=== PATIENT | female | born 1965 | race Caucasian/White ===

== ENCOUNTER → 2016-10-08 | Outpatient (CLI) | payer BC ==
--- NOTE | 2016-10-09 10:58 | MM ---
Reason for exam: screening (asymptomatic). Last mammogram was performed 2 years and 2 months ago. History: Family history of breast cancer in mother. Physical Findings: A clinical breast exam by your physician is recommended on an annual basis and results should be correlated with mammographic findings. MG Screening Mammo w CAD Bilateral CC and MLO view(s) were taken. Prior study comparison: August 19, 2014, left breast MG work up mamm w CAD LT. August 13, 2014, bilateral MG screening mammo w CAD. The breast tissue is heterogeneously dense. This may lower the sensitivity of mammography. No significant changes when compared with prior studies. ASSESSMENT: Benign, BI-RAD 2 RECOMMENDATION: Routine screening mammogram of both breasts in 1 year.
== END | disposition home or self-care (01) ==
LOC: RADMAMWWP 16:41
PROVIDERS: ATTEND Obstetrics & Gynecology
DX: Z12.31 Encounter for screening mammogram for malignant neoplasm of breast (principal)

== ENCOUNTER → 2018-07-23 | Outpatient (CLI) | payer OTHER ==
--- NOTE | 2018-07-23 12:40 | XR ---
EXAMINATION TYPE: XR wrist complete RT, XR hand complete RT, XR forearm RT, XR elbow complete RT DATE OF EXAM: 07/23/2018 CLINICAL HISTORY: Pain after trip and fall injury. TECHNIQUE: Two views of the right forearm are obtained. 3 views of the right elbow, wrist, and hand a re obtained. Fourth scaphoid view right wrist is acquired. COMPARISON: None. FINDINGS: Images of right elbow show suspicious linear lucency consistent with acute nondisplaced fr acture through the radial head appreciated best on oblique image. There are no definitive abnormal fa t pad signs but oblique images strongly suspicious. Mild to moderate subcutaneous edema along ulnar a spect is noted. There is no additional acute fracture or dislocation seen in the right radius or ulna. The overlying soft tissue appears within normal limits. Right wrist shows no acute fracture or dislocation. Carpal joint spaces are maintained. Overlying sof t tissue is unremarkable. Right hand shows no acute fracture or dislocation. Mild degenerative change throughout the phalanges most prominent fifth PIP joint is seen. Overlying soft tissue is unremarkab le. IMPRESSION: There is linear lucency suspicious for acute nondisplaced intra-articular fracture throu gh the radial head. Correlate clinically for point tenderness at this level advised.
--- NOTE | 2018-07-23 12:42 | XR ---
EXAMINATION TYPE: XR knee complete LT DATE OF EXAM: 07/23/2018 CLINICAL HISTORY: Fall with left knee pain TECHNIQUE: Three views of the left knee are obtained. COMPARISON: None. FINDINGS: There is no acute fracture/dislocation evident in left knee. The tri-compartment joint sp aces demonstrate very small tricompartmental osteophytes. The overlying soft tissue appears unremark able. IMPRESSION: There is no acute fracture or dislocation in the left knee. Minimal tricompartmental art hrosis.
== END | disposition home or self-care (01) ==
LOC: RADXRMAIN 11:43
PROVIDERS: ATTEND Emergency Medicine
DX: S80.02XA Contusion of left knee, initial encounter (principal); S53.401A Unspecified sprain of right elbow, initial encounter; S63.501A Unspecified sprain of right wrist, initial encounter; M17.11 Unilateral primary osteoarthritis, right knee

== ENCOUNTER → 2018-11-10 | Outpatient (CLI) | payer BC, OTHER ==
--- NOTE | 2018-11-10 12:29 | XR ---
EXAMINATION TYPE: XR chest 2V DATE OF EXAM: 11/10/2018 COMPARISON: 04/29/2015 INDICATION: Cough pain radiating into shoulder TECHNIQUE: Frontal and lateral views of the chest are obtained. FINDINGS: The heart size is normal. The pulmonary vasculature is normal. The lungs are clear. IMPRESSION: 1. No acute pulmonary process.
== END | disposition home or self-care (01) ==
LOC: RADXRMAIN 12:14
PROVIDERS: ATTEND Family Medicine
DX: R07.81 Pleurodynia (principal)
CPT/HCPCS: 71046

== ENCOUNTER → 2018-12-12 | Outpatient (CLI) | payer BC, OTHER ==
--- NOTE | 2018-12-15 10:07 | MM ---
Reason for exam: screening (asymptomatic). Last mammogram was performed 2 years and 2 months ago. History: Patient is postmenopausal. Family history of breast cancer in mother. Physical Findings: A clinical breast exam by your physician is recommended on an annual basis and results should be correlated with mammographic findings. MG 3D Screening Mammo W/Cad Bilateral CC and MLO view(s) were taken. Prior study comparison: October 08, 2016, bilateral MG screening mammo w CAD. August 19, 2014, left breast MG work up mamm w CAD LT. The breast tissue is heterogeneously dense. This may lower the sensitivity of mammography. No significant changes when compared with prior studies. ASSESSMENT: Benign, BI-RAD 2 RECOMMENDATION: Routine screening mammogram of both breasts in 1 year.
== END | disposition home or self-care (01) ==
LOC: RADMAMWWP 13:47
PROVIDERS: ATTEND Family Medicine
DX: Z12.31 Encounter for screening mammogram for malignant neoplasm of breast (principal)
CPT/HCPCS: 77063; 77067

== ENCOUNTER → 2021-03-24 | Outpatient (CLI) | payer BC, OTHER ==
--- NOTE | 2021-03-28 08:45 | MM ---
Reason for exam: screening (asymptomatic). Last mammogram was performed 2 years and 3 months ago. History: Patient is postmenopausal. Family history of breast cancer in mother. Physical Findings: Nurse did not find any significant physical abnormalities on exam. MG 3D Screening Mammo W/Cad Bilateral CC and MLO view(s) were taken. Prior study comparison: December 12, 2018, bilateral MG 3d screening mammo w/cad. October 08, 2016, bilateral MG screening mammo w CAD. There are scattered fibroglandular densities. New 5mm isodense, oval, circumscribed nodule, probable cyst 2 o'clock left breast. Reassess at 6 months. ASSESSMENT: Probably benign, BI-RAD 3 RECOMMENDATION: Follow-up diagnostic mammogram of the right breast in 6 months.
== END | disposition home or self-care (01) ==
LOC: RADMAMWWP 14:48
PROVIDERS: ATTEND Family Medicine
DX: Z12.31 Encounter for screening mammogram for malignant neoplasm of breast (principal); Z78.0 Asymptomatic menopausal state; Z80.3 Family history of malignant neoplasm of breast
CPT/HCPCS: 77063; 77067

== ENCOUNTER → 2021-11-10 | Outpatient (CLI) | payer BC, OTHER ==
--- NOTE | 2021-11-10 14:33 | USB ---
Reason for Exam: Follow-up at short interval from prior study. Patient History: Menarche at age 12. First Full-Term at age 14. Hysterectomy at age 33. Postmenopausal. Mother had breast cancer. Risk Values: Dee 5 year model risk: 2.3%. NCI Lifetime model risk: 14.5%. Technique: Method: Targeted. Prior Study Comparison: 10/08/2016 Bilateral Screening Mammogram, LOCATED WITHIN [facility]. 12/12/2018 Bilateral Screening Mammogram, LOCATED [facility]IN [facility]. 03/24/2021 Bilateral Screening Mammogram, LOCATED WITHIN [facility]. Findings: The upper outer quadrant of the left breast, the axilla of the left breast and the retroareolar of the left breast were scanned. The left breast radiotracer ultrasound was obtained from 12:00 to 3:00 with additional evaluation of the retroareolar region and axillary region. Circumscribed anechoic mass within the left breast at 2:00 measuring 0.5 x 0.3 x 0.4 cm with no internal color flow. No posterior acoustic features identified. Favor to represent a cyst. Overall Assessment: Benign, BI-RAD 2 Management: Screening Mammogram of both breasts in 6 months. A clinical breast exam by your physician is recommended on an annual basis and results should be correlated with mammographic findings. Electronically signed and approved by: Damian Kelley D.O.
--- NOTE | 2021-11-10 14:49 | MM ---
Reason for Exam: Follow-up at short interval from prior study. Last screening mammogram was performed 7 month(s) ago. Patient History: Menarche at age 12. First Full-Term at age 14. Hysterectomy at age 33. Postmenopausal. Mother had breast cancer. Risk Values: Dee 5 year model risk: 2.3%. NCI Lifetime model risk: 14.5%. Prior Study Comparison: 10/08/2016 Bilateral Screening Mammogram, [facility]. 12/12/2018 Bilateral Screening Mammogram, [facility]. 03/24/2021 Bilateral Screening Mammogram, [facility]. Tissue Density: Left: There are scattered fibroglandular densities. Findings: Analyzed By CAD. Stable 5 mm isodense oval circumscribed nodule in the left breast at 2:00. No new suspicious masses or worrisome cluster microcalcifications. Overall Assessment: Incomplete: need additional imaging evaluation, BI-RAD 0 Management: Diagnostic Breast Ultrasound of the left breast. A clinical breast exam by your physician is recommended on an annual basis and results should be correlated with mammographic findings. This exam should not preclude additional follow-up of suspicious palpable abnormalities. Results were given to the patient verbally at the time of exam. Electronically signed and approved by: Damian Kelley D.O.
== END | disposition home or self-care (01) ==
LOC: RADMAMWWP 13:39
PROVIDERS: ATTEND Family Medicine
DX: N60.02 Solitary cyst of left breast (principal); Z78.0 Asymptomatic menopausal state; Z80.3 Family history of malignant neoplasm of breast
CPT/HCPCS: 77061; 77065

== ENCOUNTER → 2022-06-06 | Outpatient (CLI) | payer BC, OTHER ==
--- NOTE | 2022-06-06 18:46 | US ---
EXAMINATION TYPE: US thyroid st tissue head/neck DATE OF EXAM: 06/06/2022 COMPARISON: NONE CLINICAL INDICATION: Female, 56 years old with history of I88.9 LYMPHADENITIS; Pain right neck, near jawline for 4 weeks TECHNIQUE: Multiple grayscale and color Doppler ultrasound images of the bilateral neck were obtaine d near the jawline. FINDINGS/IMPRESSION: Multiple mildly prominent benign-appearing lymph nodes bilateral neck, largest = 1.6 x 0.8 x 1.0cm on the right and 2.2 x 0.7 x 1.1cm on the left . These demonstrate central fatty hilum. These are likely reactive.
== END | disposition home or self-care (01) ==
LOC: RADUSWWP 16:14
PROVIDERS: ATTEND Family Medicine
DX: I88.9 Nonspecific lymphadenitis, unspecified (principal)
CPT/HCPCS: 76536

== ENCOUNTER 2023-05-21 14:22 | Emergency (ER) | payer BC, OTHER ==
--- NOTE | 2023-05-21 15:45 | ED ---
Abdominal Pain HPI - General Source: patient, RN notes reviewed Mode of arrival: ambulatory Limitations: no limitations <Benji Yao - Last Filed: 05/21/23 15:41> - General Source: RN notes reviewed, old records reviewed Mode of arrival: ambulatory Limitations: no limitations - History of Present Illness MD Complaint: abdominal pain -: days(s) Location: suprapubic Radiation: suprapubic Migration to: epigastric Severity: moderate Severity scale (1-10): 5 Quality: fullness Consistency: constant Improves With: nothing <Jaspal Mcdonough - Last Filed: 05/26/23 18:33> - General Chief Complaint: Abdominal Pain Stated Complaint: Abd Pain Time Seen by Provider: 05/21/23 14:39 - History of Present Illness Initial Comments: 57-year-old female presents emergency department with chief complaint of abdominal pain. Patient states the crampy type pain left lower quadrant. Patient states he has had no fevers or chills she has chronic diarrhea issues. She does have known diverticulosis but states she never had infection she had a colonoscopy within the last year. Patient denies any significant nausea vomiting no chest pain shortness of breath no dysuria no hematuria. (Benji Yao) 57 female to ER for evaluation of severe abdominal pain (Jaspal Mcdonough) - Related Data Home Medications Medication Instructions Recorded Confirmed Primidone 150 mg PO HS 04/10/22 05/21/23 Fenofibrate Nanocrystallized 145 mg PO DAILY 05/21/23 05/21/23 [Fenofibrate] metFORMIN HCL ER [Glucophage XR] 500 mg PO DAILY 05/21/23 05/21/23 Previous Rx's Medication Instructions Recorded Amoxic-Pot Clav 875-125Mg 1 tab PO Q12HR #20 tablet 05/21/23 [Augmentin 875-125] Ketorolac [Toradol] 10 mg PO Q6HR #30 tab 05/21/23 Ondansetron Odt [Zofran ODT] 4 mg PO Q8HR PRN #30 tab 05/21/23 Allergies Allergy/AdvReac Type Severity Reaction Status Date / Time venom-honey bee Allergy Swelling, Verified 05/21/23 16:04 [bee venom (honey bee)] SOB, Rash Review of Systems ROS Other: All systems not noted in ROS Statement are negative. <Benji Yao - Last Filed: 05/21/23 15:41> ROS Other: All systems not noted in ROS Statement are negative. <Jaspal Mcdonough - Last Filed: 05/26/23 18:33> ROS Statement: Those systems with pertinent positive or pertinent negative responses have been documented in the HPI. Past Medical History Past Medical History: COPD Additional Past Medical History / Comment(s): varicose veins, arthritis, tremors. Diarrhea at times. pre- diabetic - diet controlled diverticulitis History of Any Multi-Drug Resistant Organisms: MRSA Date of last positivie culture/infection: 02/17/2011 MDRO Source:: nose Past Surgical History: Cholecystectomy, Hysterectomy, Orthopedic Surgery, Tubal Ligation Additional Past Surgical History / Comment(s): analilia carpal tunnel, still has ovaries. Past Anesthesia/Blood Transfusion Reactions: Postoperative Nausea & Vomiting (PONV) Additional Past Anesthesia/Blood Transfusion Reaction / Comment(s): Vertigo Past Psychological History: No Psychological Hx Reported Smoking Status: Current every day smoker - Past Family History Mother Family Medical History: Cancer Father Family Medical History: Cancer <Benji Yao - Last Filed: 05/21/23 15:41> General Exam Limitations: no limitations General appearance: alert, in no apparent distress Head exam: Present: atraumatic, normocephalic, normal inspection Neck exam: Present: normal inspection. Absent: tenderness, meningismus, lymphadenopathy Respiratory exam: Present: normal lung sounds bilaterally. Absent: respiratory distress, wheezes, rales, rhonchi, stridor Cardiovascular Exam: Present: regular rate, normal rhythm, normal heart sounds. Absent: systolic murmur, diastolic murmur, rubs, gallop, clicks GI/Abdominal exam: Present: soft, tenderness (Left lower quadrant), normal bowel sounds. Absent: distended, guarding, rebound, rigid Back exam: Absent: CVA tenderness (R), CVA tenderness (L) Neurological exam: Present: alert <ArtieBenji bourne - Last Filed: 05/21/23 15:41> General appearance: alert, in no apparent distress Head exam: Present: atraumatic, normocephalic, normal inspection Eye exam: Present: normal appearance, PERRL, EOMI. Absent: scleral icterus, conjunctival injection, periorbital swelling ENT exam: Present: normal exam, mucous membranes moist Neck exam: Present: normal inspection. Absent: tenderness, meningismus, lymphadenopathy Respiratory exam: Present: normal lung sounds bilaterally. Absent: respiratory distress, wheezes, rales, rhonchi, stridor Cardiovascular Exam: Present: regular rate, normal rhythm, normal heart sounds. Absent: systolic murmur, diastolic murmur, rubs, gallop, clicks GI/Abdominal exam: Present: soft, normal bowel sounds. Absent: distended, tenderness, guarding, rebound, rigid Extremities exam: Present: normal inspection, full ROM, normal capillary refill. Absent: tenderness, pedal edema, joint swelling, calf tenderness Back exam: Present: normal inspection Neurological exam: Present: alert, oriented X3, CN II-XII intact Psychiatric exam: Present: normal affect, normal mood Skin exam: Present: warm, dry, intact, normal color. Absent: rash <Jaspal Mcdonough - Last Filed: 05/26/23 18:33> Course <Jaspal Mcdonough - Last Filed: 05/26/23 18:33> Vital Signs 05/21/23 05/21/23 14:37 16:30 Temperature 98.3 F 98.0 F Pulse Rate 79 70 Respiratory 16 18 Rate Blood Pressure 139/82 136/66 O2 Sat by Pulse 98 98 Oximetry - Reevaluation(s) Reevaluation #1: Medical record is reviewed (Jaspal Mcdonough) Reevaluation #2: Patient symptoms are improved (Jaspal Mcdonough) Reevaluation #3: Patient informed of results questions answered (Jaspal Mcdonough) Reevaluation #4: Was pt. sent in by a medical professional or institution (, PA, SECURITY ALARM TECHNICIAN, urgent care, hospital, or custodial...) When possible be specific @ -no Did you speak to anyone other than the patient for history (EMS, parent, family, police, friend...)? What history was obtained from this source @ -no Did you review nursing and triage notes (agree or disagree)? Why? @ -agree Are old charts reviewed (outside hosp., previous admission, EMS record, old EKG, old radiological studies, urgent care reports/EKG's, custodial records)? Report findings @ -yes Differential Diagnosis (chest pain, altered mental status, abdominal pain women, abdominal pain men, vaginal bleeding, weakness, fever, dyspnea, syncope, headache, dizziness, GI bleed, back pain, seizure, CVA, palpatations, mental health, musculoskeletal)? @ -prior EKG interpreted by me (3pts min.). @ -no X-rays interpreted by me (1pt min.). @ -no CT interpreted by me (1pt min.). @ -Yes positive for ovarian cyst U/S interpreted by me (1pt. min.). @ - yes positive for ovarian cyst What testing was considered but not performed or refused? (CT, X-rays, U/S, labs)? Why? @ -none What meds were considered but not given or refused? Why? @ -none Did you discuss the management of the patient with other professionals (professionals i.e. , PA, SECURITY ALARM TECHNICIAN, lab, RT, psych nurse, social psychologist, ocean lifeguard specialist, teacher, protection officer, pillowcase sewer)? Give summary @ -no Was smoking cessation discussed for >3mins.? @ -no Was critical care preformed (if so, how long)? @ -no Were there social determinants of health that impacted care today? How? (Homelessness, low income, unemployed, alcoholism, drug addiction, transportation, low edu. Level, literacy, decrease access to med. care, care home, rehab)? @ -none Was there de-escalation of care discussed even if they declined (Discuss DNR or withdrawal of care, Hospice)? DNR status @ -no What co-morbidities impacted this encounter? (DM, HTN, Smoking, COPD, CAD, Cancer, CVA, ARF, Chemo, Hep., AIDS, mental health diagnosis, sleep apnea, mor bid obesity)? @ -none Was patient admitted / discharged? Hospital course, mention meds given and ro [place], prescriptions, significant lab abnormalities, going to OR and other pertinent info. @ - 57 female to the ER for evaluation today. Patient presents today for evaluation in regards to abdominal pain, patient was found to have significant ovarian cyst complex cystic mass suspect neoplasm, will follow-up with OB Discharge Undiagnosed new problem with uncertain prognosis? @ -no Drug Therapy requiring intensive monitoring for toxicity (Heparin, Nitro, Insulin, Cardizem)? @ -no Were any procedures done? @ -no Diagnosis/symptom? @ -Ovarian cyst Acute, or Chronic, or Acute on Chronic? @ -Acute Uncomplicated (without systemic symptoms) or Complicated (systemic symptoms)? @ -Complicated Side effects of treatment? @ -no Exacerbation, Progression, or Severe Exacerbation? @ -exacerbation Poses a threat to life or bodily function? How? (Chest pain, [place], [place], pneumonia, PE, COPD, DKA, ARF, appy, cholecystitis, CVA, Diverticulitis, Homicidal, Suicidal, threat to staff... and all critical care pts) @ -no (Jaspal Mcdonough) Reevaluation #5: Differential Abdominal Pain Women: Appendicitis, Cholecystitis, diverticulosis, ischemic bowel, pancreatitis, hepatitis, UTI, gastroenteritis, AAA, incarcerated hernia, bowel obstruction, constipation, inflammatory bowel, hepatitis, peptic ulcer disease, splenic infarction, perforated viscus, vulvitis, ovarian torsion, PID, kidney stone, placenta abruption, this is not meant to be an all-inclusive list (Jaspal Mcdonough) Medical Decision Making - Lab Data Result diagrams: 05/21/23 15:48 05/21/23 15:48 - Radiology Data Radiology results: report reviewed (Ultrasound positive for the same complex cyst showing cystic mass), image reviewed <Jaspal Mcdonough - Last Filed: 05/26/23 18:33> - Medical Decision Making 57 female to the ER for evaluation today. Patient presents today for evaluation in regards to abdominal pain, patient was found to have significant ovarian cyst complex cystic mass suspect neoplasm, will follow-up with OB (Jaspal Mcdonough) - Lab Data Lab Results 05/21/23 05/21/23 05/21/23 Range/Units 15:48 15:48 15:48 WBC 10.3 (3.8-10.6) k/uL RBC 5.19 (3.80-5.40) m/uL Hgb 16.3 H (11.4-16.0) gm/dL Hct 49.3 H (34.0-46.0) % MCV 95.1 (80.0-100.0) fL MCH 31.4 (25.0-35.0) pg MCHC 33.0 (31.0-37.0) g/dL RDW 12.7 (11.5-15.5) % Plt Count 242 (150-450) k/uL MPV 8.0 Neutrophils % 65 % Lymphocytes % 27 % Monocytes % 4 % Eosinophils % 2 % Basophils % 1 % Neutrophils # 6.7 (1.3-7.7) k/uL Lymphocytes # 2.7 (1.0-4.8) k/uL Monocytes # 0.5 (0-1.0) k/uL Eosinophils # 0.2 (0-0.7) k/uL Basophils # 0.1 (0-0.2) k/uL Sodium 140 (137-145) mmol/L Potassium 4.0 (3.5-5.1) mmol/L Chloride 106 (98-107) mmol/L Carbon Dioxide 23 (22-30) mmol/L Anion Gap 11 mmol/L BUN 11 (7-17) mg/dL Creatinine 0.78 (0.52-1.04) mg/dL Est GFR (CKD-EPI)AfAm >90 (>60 ml/min/1.73 sqM) Est GFR (CKD-EPI)NonAf 84 (>60 ml/min/1.73 sqM) Glucose 97 (74-99) mg/dL Plasma Lactic Acid Anjel 0.9 (0.7-2.0) mmol/L Calcium 9.7 (8.4-10.2) mg/dL Total Bilirubin 0.5 (0.2-1.3) mg/dL AST 24 (14-36) U/L ALT 36 H (4-34) U/L Alkaline Phosphatase 57 (38-126) U/L Total Protein 7.8 (6.3-8.2) g/dL Albumin 5.0 (3.5-5.0) g/dL Lipase 140 (23-300) U/L Urine Color Urine Appearance (Clear) Urine pH (5.0-8.0) Ur Specific Hudson (1.001-1.035) Urine Protein (Negative) Urine Glucose (UA) (Negative) Urine Ketones (Negative) Urine Blood (Negative) Urine Nitrite (Negative) Urine Bilirubin (Negative) Urine Urobilinogen (<2.0) mg/dL Ur Leukocyte Esterase (Negative) 05/21/23 Range/Units 16:25 WBC (3.8-10.6) k/uL RBC (3.80-5.40) m/uL Hgb (11.4-16.0) gm/dL Hct (34.0-46.0) % MCV (80.0-100.0) fL MCH (25.0-35.0) pg MCHC (31.0-37.0) g/dL RDW (11.5-15.5) % Plt Count (150-450) k/uL MPV Neutrophils % % Lymphocytes % % Monocytes % % Eosinophils % % Basophils % % Neutrophils # (1.3-7.7) k/uL Lymphocytes # (1.0-4.8) k/uL Monocytes # (0-1.0) k/uL Eosinophils # (0-0.7) k/uL Basophils # (0-0.2) k/uL Sodium (137-145) mmol/L Potassium (3.5-5.1) mmol/L Chloride (98-107) mmol/L Carbon Dioxide (22-30) mmol/L Anion Gap mmol/L BUN (7-17) mg/dL Creatinine (0.52-1.04) mg/dL Est GFR (CKD-EPI)AfAm (>60 ml/min/1.73 sqM) Est GFR (CKD-EPI)NonAf (>60 ml/min/1.73 sqM) Glucose (74-99) mg/dL Plasma Lactic Acid Anjel (0.7-2.0) mmol/L Calcium (8.4-10.2) mg/dL Total Bilirubin (0.2-1.3) mg/dL AST (14-36) U/L ALT (4-34) U/L Alkaline Phosphatase (38-126) U/L Total Protein (6.3-8.2) g/dL Albumin (3.5-5.0) g/dL Lipase (23-300) U/L Urine Color Colorless Urine Appearance Clear (Clear) Urine pH 5.5 (5.0-8.0) Ur Specific [place] 1.015 (1.001-1.035) Urine Protein Negative (Negative) Urine Glucose (UA) Negative (Negative) Urine Ketones Negative (Negative) Urine Blood Negative (Negative) Urine Nitrite Negative (Negative) Urine Bilirubin Negative (Negative) Urine Urobilinogen <2.0 (<2.0) mg/dL Ur Leukocyte Esterase Negative (Negative) Disposition <Benji Yao - Last Filed: 05/21/23 15:41> Is patient prescribed a controlled substance at d/c from ED?: No Time of Disposition: 17:15 <Jaspal Mcdonough - Last Filed: 05/26/23 18:33> Clinical Impression: Abdominal colic, Abdominal pain, Ovarian cyst, Diverticulitis Disposition: HOME SELF-CARE Condition: Good Instructions (If sedation given, give patient instructions): Ovarian Cyst (ED) Prescriptions: Amoxic-Pot Clav 875-125Mg [Augmentin 875-125] 1 tab PO Q12HR #20 tablet Ketorolac [Toradol] 10 mg PO Q6HR #30 tab Ondansetron Odt [Zofran ODT] 4 mg PO Q8HR PRN #30 tab PRN Reason: nausea/vomiting Referrals: Bernadette Jack DO [Doctor of Osteopathic Medicine] - 1-2 days Isidoro Biswas DO [Primary Care Provider] - 1-2 days
[2023-05-21] MEDS: KETOROLAC 15 MG/ML 1 ML VIAL IVP STA (15:49)
[2023-05-21] MEDS: SODIUM CHLORIDE 0.9% 1,000 ML IV STA (15:49)
[2023-05-21 16:06] LABS: Basophils # (A) 0.1 k/uL (0-0.2); Basophils % (A) 1 %; Eosinophils # (A) 0.2 k/uL (0-0.7); Eosinophils % (A) 2 %; HCT 49.3 % (34.0-46.0); HGB 16.3 gm/dL (11.4-16.0); Lymphocytes # (A) 2.7 k/uL (1.0-4.8); Lymphocytes % (A) 27 %; MCH 31.4 pg (25.0-35.0); MCV 95.1 fL (80.0-100.0); Monocytes # (A) 0.5 k/uL (0-1.0); Monocytes % (A) 4 %; Neutrophils # (A) 6.7 k/uL (1.3-7.7); Neutrophils % (A) 65 %; Platelet Count 242 k/uL (150-450); RBC 5.19 m/uL (3.80-5.40); RDW 12.7 % (11.5-15.5); WBC 10.3 k/uL (3.8-10.6)
--- NOTE | 2023-05-21 16:08 | CT ---
EXAMINATION TYPE: CT abdomen pelvis w con DATE OF EXAM: 05/21/2023 COMPARISON: 10/27/2009 INDICATION: LLQ abdominal pain, hx diverticulosis DLP: 882.6 mGycm, Automated exposure control for dose reduction was used. CONTRAST: 100ml mL of Isovue 300. Study performed without Oral Contrast TECHNIQUE: Axial images were obtained from above the diaphragm to the pubic rami in the axial plane a t 5 mm thick sections. Reconstructed images are reviewed on the computer in the coronal plane. FINDINGS: Limited CT sections are obtained the lung bases. The lung bases are clear. CT ABDOMEN: Liver: There is moderate fatty liver. Spleen: Normal Pancreas: Normal Adrenal glands: The adrenal glands are normal. Gallbladder: Surgically absent Kidneys: No masses are evident. No hydronephrosis is present. No cysts are present. Delayed images were obtained through the kidneys, which remain unremarkable. Aorta: Vascular calcification is within the aorta. Inferior vena cava: Normal. CT PELVIS: Loops of bowel within the abdomen and pelvis are normal. The study is without oral contrast limit ing bowel evaluation. Few diverticuli are scattered within the sigmoid colon. Some subtle inflammator y change may be adjacent to the proximal sigmoid colon. Correlate for acute diverticulitis rate no ab scess formation or free air is identified. Appendix: Normal as visualized. Urinary bladder: Normal. Genitourinary structures: There is a very large cystic structure in the posterior left hemipelvis asia suring 7.7 x 7.9 cm. This measures 0 Hounsfield units. Large ovarian cyst is suspected. Uterus is not identified. Right adnexa appears unremarkable. Osseous structures: No suspicious lytic or sclerotic lesions. IMPRESSION: 1. Large left ovarian cyst measuring 7 cm 2. Some minimal proximal sigmoid colon diverticulitis may be present. No abscess formation or free ai r evident.
[2023-05-21 16:11] LABS: ALT 36 U/L (4-34); AST 24 U/L (14-36); African American GFR (CKD) >90 (>60 ml/min/1.73 sqM); Alkaline Phosphatase 57 U/L (38-126); Anion Gap 11 mmol/L; Blood Urea Nitrogen 11 mg/dL (7-17); Calcium 9.7 mg/dL (8.4-10.2); Carbon Dioxide 23 mmol/L (22-30); Chloride 106 mmol/L (98-107); Glucose 97 mg/dL (74-99); Lipase 140 U/L (23-300); Non-African American GFR(CKD) 84 (>60 ml/min/1.73 sqM); Sodium 140 mmol/L (137-145); Total Bilirubin 0.5 mg/dL (0.2-1.3); Total Protein 7.8 g/dL (6.3-8.2)
[2023-05-21 16:44] LABS: Appearance,Urine Clear (Clear); Bilirubin,Urine Negative (Negative); Blood,Urine Negative (Negative); Color,Urine Colorless; Glucose,Urine (UA) Negative (Negative); Ketones,Urine Negative (Negative); Leukocyte Esterase,Urine Negative (Negative); Nitrite,Urine Negative (Negative); PH, Urine 5.5 (5.0-8.0); Protein,Urine Negative (Negative); Specific Gravity,Urine 1.015 (1.001-1.035); Urobilinogen,Urine <2.0 mg/dL (<2.0)
[2023-05-21 17:11] VITALS: BP 136/66; PULSE 70; RESP 18; TEMP 98
--- NOTE | 2023-05-21 17:13 | US ---
EXAMINATION TYPE: US transvaginal DATE OF EXAM: 05/21/2023 COMPARISON: 05/21/2023 CLINICAL INDICATION: Female, 57 years old with history of Left ovarian cyst; left ovarian cyst. Patie nt has hysterectomy. TECHNIQUE: Transvaginal (TV). . Transvaginal sonographic images were medically necessary to better assess the following anatomy: EXAM MEASUREMENTS: Uterus: Surgically absent Endometrial Stripe: Surgically absent Right Ovary: unable to visualize Left Ovary: 8.8 x 6.0 x 8.6 cm limited due to overlying bowel gas and presence of left ovarian cysticstructure 1. Uterus: Surgically absent 2. Endometrium: Surgically absent 3. Right Ovary: Obscured by overlying bowel gas 4. Left Ovary: There is a 8.7 x 8.6 x 5.8cm cystic structure with septations seen. Spectral, color and waveform doppler imaging shows good arterial and venous flow within the left ov carolyn; there is no discrete evidence for ovarian torsion. 5. Bilateral Adnexa: Obscured by overlying bowel gas 6. Posterior cul-de-sac: wnl as best seen IMPRESSION: Large left ovarian cystic mass with internal septations. No definite evidence for torsion. Neoplasm i s not excluded.
[2023-05-21] MEDS: AMOXIC-POT CLAV 875MG STARTER PACK 2 TAB BTL PO STA (17:52)
[2023-05-21] MEDS: ONDANSETRON 4 MG ODT STARTER PACK 2 TAB BTL PO STA (17:52)
[2023-05-21] MEDS: IBUPROFEN 600 MG STARTER PACK 4 TAB BTL PO STA (17:53)
[2023-05-21] MEDS: traMADol 50 MG STARTER PACK 3 TAB BTL PO STA (17:53)
== END 2023-05-21 17:53 | disposition home or self-care (01) ==
LOC: EC 14:22
DX: N83.202 Unspecified ovarian cyst, left side (principal); K57.32 Diverticulitis of large intestine without perforation or abscess without bleeding; F17.200 Nicotine dependence, unspecified, uncomplicated; Z91.030 Bee allergy status; Z90.49 Acquired absence of other specified parts of digestive tract
CPT/HCPCS: 36415; 80053; 83605; 83690; 85025; 81003; 93976; 76830; 74177; 99285; 96374; 96361; J1885; S0119; Q9967